=== PATIENT | female | born 1990 | race Caucasian/White ===

== ENCOUNTER 2019-01-26 13:24 | Emergency (ER) | payer MEDICAID ==
[~2019-01-26] VITALS: Ht 162.6 cm; Wt 79.0 kg
[2019-01-26 13:27] VITALS: BP 140/79
--- NOTE | 2019-01-26 14:03 | NUR ---
Patient/Caregiver given discharge instructions and they have confirmed that they understand the instructions. Patient ambulatory with steady gait.
== END 2019-01-26 14:05 | disposition home or self-care (01) ==
LOC: ED 14:01
DX: H66.93 Otitis media, unspecified, bilateral (principal); J06.9 Acute upper respiratory infection, unspecified; J02.9 Acute pharyngitis, unspecified
CPT/HCPCS: 99283

== ENCOUNTER 2019-02-22 14:08 | Emergency (ER) | payer MEDICAID ==
[~2019-02-22] VITALS: Ht 162.6 cm; Wt 78.0 kg
--- NOTE | 2019-02-22 14:23 | NUR ---
THIS IS A 28 YEAR OLD FEMALE WHO C/O OF PELVIC/BACK PAIN SINCE 10AM TODAY. HX OF POLYCYSTIC OVARIAN SYNDROME. TOOK 400MG IBUPROFEN 12:45.
[2019-02-22 14:44] LABS: BASOPHILS # (AUTO) 0.04 x10^3/uL (0-0.1); BASOPHILS % (AUTO) 0 % (0-1); EOSINOPHILS # (AUTO) 0.27 x10^3/uL (0-0.4); EOSINOPHILS % (AUTO) 2 % (1-7); LYMPHOCYTES # (AUTO) 1.47 x10^3/uL (1-3.4); LYMPHOCYTES % (AUTO) 12 % (22-44); MD NO; MEAN CORPUSCULAR HEMOGLOBIN 31.2 pg (27.0-34.8); MEAN CORPUSCULAR HGB CONC 32.5 g/dL (32.4-35.8); MEAN CORPUSCULAR VOLUME 95.8 fL (80-100); MEAN PLATELET VOLUME 7.7 fL (7.4-10.4); MONOCYTES # (AUTO) 0.55 x10^3/uL (0.2-0.8); MONOCYTES % (AUTO) 4 % (2-9); NEUTROPHILS # (AUTO) 10.14 x10^3/uL (1.8-6.8); NEUTROPHILS % (AUTO) 81 % (42-75); PLATELET COUNT 254 x10^3/uL (130-400); RED BLOOD COUNT 4.66 x10^6/uL (3.82-5.3); RED CELL DISTRIBUTION WIDTH 13.7 % (9.6-15.2)
[2019-02-22 14:53] LABS: ALBUMIN 3.6 g/dL (3.4-5.0); ANION GAP 6 mmol/L (5-15); CALCIUM 8.8 mg/dL (8.5-10.1); CHLORIDE 112 mmol/L (98-107)
[2019-02-22 14:54] LABS: CREATININE 0.93 mg/dL (0.55-1.02)
[2019-02-22 15:11] LABS: HCG UR SG 1.025 (1.003-1.030); MICROSCOPIC NOT IND
[2019-02-22 15:29] LABS: CULTURE INDICATED? NO
--- NOTE | 2019-02-22 16:20 | NUR ---
PT RESTING COMFORTABLE. NO FURTHER ORDERS AT TIME
--- NOTE | 2019-02-22 16:36 | NUR ---
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
[2019-02-22] MEDS ORDERED: CEFTRIAXONE 250 MG ONE (17:10)
[2019-02-22 17:25] LABS: CLUE CELLS NONE SEEN (NONE SEEN); WET PREP WBCS MODERATE (FEW)
--- NOTE | 2019-02-22 17:29 | NUR ---
DPatient/Caregiver given discharge instructions and they have confirmed that they understand the instructions. Patient ambulatory with steady gait.
--- NOTE | 2019-02-22 17:29 | NUR ---
RN CHAPERONED Harjeet MONTERROSO FOR PELVIC EXAM.
[2019-02-22] MEDS ORDERED: CEFTRIAXONE 1,000 MG IM ONE (17:30)
[2019-02-22 17:49] VITALS: BP 120/86
== END 2019-02-22 18:22 | disposition home or self-care (01) ==
LOC: ED 14:56
DX: N72 Inflammatory disease of cervix uteri (principal); R10.2 Pelvic and perineal pain
CPT/HCPCS: 36415; 80048; 81003; 81025; 82040; 85025; 87210; 87491; 87591; 87808; 96372; 99283; J0696

== ENCOUNTER 2019-06-27 09:29 | Emergency (ER) | payer SELFPAY ==
[~2019-06-27] VITALS: Ht 162.6 cm; Wt 76.8 kg
[2019-06-27 09:31] VITALS: BP 127/67
--- NOTE | 2019-06-27 11:20 | NUR ---
late entry: pt given dc instructions and script, educated regarding rx for albuterol, zofran and tessalon. pt a&o, resps even and unlabored, nadn. pt amb to dc desk with steady gait accompanied by family.
== END 2019-06-27 11:21 | disposition home or self-care (01) ==
LOC: ED 11:18
DX: J06.9 Acute upper respiratory infection, unspecified (principal); J02.9 Acute pharyngitis, unspecified; M79.10 Myalgia, unspecified site
CPT/HCPCS: 71046; 99283